=== PATIENT | female | born 1965 ===

== ENCOUNTER → 2018-09-12 | Emergency (ER) | payer OTHER ==
[~2018-09-12] VITALS: Ht 160 cm; Wt 65.8 kg
== END | disposition home or self-care (01) ==
LOC: ER 08:38
DX: S80.11XA Contusion of right lower leg, initial encounter (principal); W18.39XA Other fall on same level, initial encounter; Y93.89 Activity, other specified; Y92.89 Other specified places as the place of occurrence of the external cause; Y99.8 Other external cause status